=== PATIENT | female | born 2000 | race American Indian/Alaskan Native ===

== ENCOUNTER 2022-01-13 00:18 | Emergency (ER) | payer OTHER ==
[2022-01-13 01:22] VITALS: BP 111/74
[2022-01-13] MEDS ORDERED: IBUPROFEN 600 MG TAB PO ONE (01:47)
[2022-01-13] MEDS ORDERED: ACETAMINOPHEN 500 MG TAB PO ONE (01:47)
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
== END 2022-01-13 04:21 | disposition home or self-care (01) ==
LOC: ED 00:18
DX: S39.012A Strain of muscle, fascia and tendon of lower back, initial encounter (principal); M62.830 Muscle spasm of back; J45.909 Unspecified asthma, uncomplicated; V89.2XXA Person injured in unspecified motor-vehicle accident, traffic, initial encounter; Y93.89 Activity, other specified; Y92.89 Other specified places as the place of occurrence of the external cause; Y99.8 Other external cause status
CPT/HCPCS: 99282